=== PATIENT | male | born 1965 | race Caucasian/White ===

== ENCOUNTER 2022-03-05 23:56 | Emergency (ER) | payer BC ==
[~2022-03-05] VITALS: Ht 193 cm; Wt 145.1 kg
[~2022-03-05 23:56] MED LIST: METFORMIN HCL1000 MG PO; METFORMIN HCL500 MG PO
[2022-03-06] MEDS ORDERED: METOPROLOL TARTRATE INJ 1 MG/ML VIAL IV STA (00:07)
[2022-03-06] MEDS ORDERED: ADENOSINE 6 MG/2 ML VIAL IV STA (00:07)
[2022-03-06] MEDS ORDERED: ADENOSINE 6 MG/2 ML VIAL IV ONE (00:15)
[2022-03-06] MEDS ORDERED: DIGOXIN INJ 0.25 MG/ML 2 ML AMP IV ONE (00:15)
[2022-03-06] MEDS ORDERED: ADENOSINE 6 MG/2 ML ONE (00:20)
[2022-03-06 00:27] LABS: BASOPHILS # (AUTO) 0.1 (0.0-0.1); BASOPHILS % 0.4 % (0.0-1.0); EOSINOPHILS # (AUTO) 0.6 (0.0-0.4); EOSINOPHILS % 4.2 % (0.0-6.0); HEMATOCRIT 47.6 % (38.2-49.6); HEMOGLOBIN 15.6 g/dL (14.0-18.0); LYMPHOCYTES # (AUTO) 3.5 (1.0-3.2); LYMPHOCYTES % 25.6 % (18.0-39.1); MEAN CORPUSCULAR HEMOGLOBIN 28.1 pg (28-32); MEAN CORPUSCULAR HGB CONC 32.8 g/dL (31-35); MEAN CORPUSCULAR VOLUME 85.8 fL (81-99); MONOCYTES # (AUTO) 1.3 (0.2-0.8); MONOCYTES % 9.2 % (4.4-11.3); NEUTROPHILS # (AUTO) 8.2 (2.1-6.9); NEUTROPHILS % 60.1 % (38.7-80.0); PLATELET COUNT 328 x10e3/uL (140-360); RED BLOOD COUNT 5.55 x10e6/uL (4.3-5.7); RED CELL DISTRIBUTION WIDTH 12.8 % (11.7-14.4)
[2022-03-06] MEDS ORDERED: DIGOXIN INJ 0.25 MG/ML 2 ML AMP ONE (00:35)
[2022-03-06] MEDS ORDERED: METOPROLOL TARTRATE INJ 1 MG/ML VIAL ONE (00:36)
[2022-03-06 01:00] LABS: ALANINE AMINOTRANSFERASE 23 IU/L (0-55); ALBUMIN 3.7 g/dL (3.5-5.0); ALKALINE PHOSPHATASE 81 IU/L (40-150); ANION GAP 17.3 mmol/L (8-16); BLOOD UREA NITROGEN 16 mg/dL (7-26); BUN/CREATININE RATIO 11 (6-25); CALCIUM 9.4 mg/dL (8.4-10.2); CARBON DIOXIDE 23 mmol/L (22-29); CHLORIDE 100 mmol/L (98-107); CREATINE KINASE 32 IU/L (30-200); GLUCOSE 346 mg/dL (74-118); POTASSIUM 4.3 mmol/L (3.5-5.1); SODIUM 136 mmol/L (136-145)
[2022-03-06 01:58] VITALS: BP 106/88
== END 2022-03-06 01:30 | disposition home or self-care (01) ==
LOC: ER 03-06 00:06
DX: R00.2 Palpitations (principal); I47.1 Supraventricular tachycardia; E11.65 Type 2 diabetes mellitus with hyperglycemia; I10 Essential (primary) hypertension; I48.91 Unspecified atrial fibrillation; R94.31 Abnormal electrocardiogram [ECG] [EKG]
CPT/HCPCS: 36415; 71045; 80053; 82550; 82553; 83880; 84484; 85025; 85379; 93005; 99284; J0153; J1160